=== PATIENT | male | born 1975 | race Caucasian/White ===

== ENCOUNTER 2024-05-02 09:37 | Emergency (ER) | payer BC, SELFPAY ==
[2024-05-02 09:50] VITALS: BP 130/82; PULSE 94; RESP 16; TEMP 36.4; O2SAT 100
[2024-05-02 10:00] LABS: EDUAAPPEAR Clear; EDUABILI Negative (Negative); EDUABLOOD Negative (Negative); EDUACOLOR1 Yellow; EDUAGLUCOSE Negative (Negative); EDUAKETONE Negative (Negative); EDUALEUKO Negative (Negative); EDUANITRATE Negative (Negative); EDUAPROTEIN Negative (Negative); EDUAUROBILI 0.2
--- NOTE | 2024-05-02 10:08 | ED_ITS ---
HPI - Abdominal Pain General Chief Complaint: Urogenital-Male Stated Complaint: ABD PAIN/UTI SYMPTOMS Time Seen by Provider: 05/02/24 09:58 Source: patient and RN notes reviewed Mode of arrival: ambulatory Limitations: no limitations History of Present Illness HPI narrative: Patient presents today complaining of a 2 day history of suprapubic discomfort with intermittent urethral pain. Denies hematuria, back pain, fever, nausea vomiting, diarrhea. Currently rates pain 4/10 and has tried no [id number] interventions prior to arrival. No scrotum or testicular discomfort. No concerns of sexually transmitted infections. Related Data Home Medications ?Medication ?Instructions ?Recorded ?Confirmed ?Last Taken ?Type atorvastatin 10 mg tablet mg 05/02/24 Unknown History Review of Systems Review of Systems: CONSTITUTIONAL: Denies body aches, fever, chills, or sweats. EYES: Denies visual changes, redness, or discharge. ENT: Denies rhinorrhea, congestion, sore throat, or otalgia. CARDIOVASCULAR: Denies chest pain, palpitations, or edema. RESPIRATORY: Denies cough or dyspnea. GASTROINTESTINAL: Denies nausea, vomiting, or diarrhea.+ suprapubic pain GENITOURINARY: Denies hematuria.+ dysuria, urethral pain SKIN: Denies rash, itching, or wounds. MUSCULOSKELETAL: Denies back pain, joint pain, or myalgia. NEUROLOGIC: Denies headache, numbness, tingling, or weakness. PSYCH: Denies depression or anxiety. PMFSH Comments At time of signature, I have reviewed and agree with nursing past medical, surgical, social and family history unless otherwise noted. Please see nursing chart for further information. There is no relevant family history pertinent to the presenting complaint Exam Narrative: GENERAL: Well-appearing, well-nourished, and in no acute distress. HEAD: Normocephalic, atraumatic. EYES: EOMI. No redness or drainage. Conjunctivae normal. ENT: Mucous membranes pink and moist. NECK: Normal AROM. CHEST: No respiratory distress. Clear to auscultation. HEART: Regular rate and rhythm. No murmur appreciated. Normal peripheral pulses. ABDOMEN: Soft, nontender, nondistended, normal active bowel sounds. EXTREMITIES: Normal range of motion. No edema. SKIN: Warm, dry, no rash. Capillary refill normal. Normal skin turgor. NEURO: No focal deficits. Alert and oriented x3. Gait steady. PSYCH: Normal affect. No signs of depression or anxiety. Course Course Level of Care: Express Care Visit Vital Signs Vital signs: Vital Signs Temperature 97.6 F 05/02/24 09:50 Pulse Rate 94 05/02/24 09:50 Respiratory Rate 16 05/02/24 09:50 Blood Pressure 130/82 05/02/24 09:50 Pulse Oximetry 100 05/02/24 09:50 Temperature 97.6 F 05/02/24 09:50 Pulse Rate 94 05/02/24 09:50 Respiratory Rate 16 05/02/24 09:50 Blood Pressure 130/82 05/02/24 09:50 Pulse Oximetry 100 05/02/24 09:50 Reviewed Transfer Transfered to: [facility] Transportation: Other (Private vehicle) Transfer rationale: Abdominal pain Accepting physician: Nadiya. Report given to Arnold Rodriguez nurse practitioner MDM - Abdominal Pain MDM Narrative Medical decision making narrative: Patient's urinalysis is negative. His abdominal exam is also negative. Gave patient the choice of being discharged or transferred to the ER for further evaluation depending on how he feels. Patient requested to go to the ER. Report called. Differential Diagnosis Differential diagnosis: Likely abdominal pain, acute appendicitis, diverticulitis and other (Gonorrhea, chlamydia, Trichomonas, UTI) Lab Data Attestation: I reviewed the patient's lab results. Labs: Lab Results 05/02/24 Range/Units 09:56 POC Urine Color Yellow POC Urine Clarity Clear POC Urine pH 7.0 POC Ur Specif [place] 1.010 POC Urine Protein Negative (Negative) POC Ur Glucose (UA) Negative (Negative) POC Urine Ketones Negative (Negative) POC Urine Blood Negative (Negative) POC Urine Nitrite Negative (Negative) POC Urine Bilirubin Negative (Negative) POC Urine Urobilinogen 0.2 POC U Leukocyte Esteras Negative (Negative) Discharge Plan Discharge Clinical Impression: Acute suprapubic pain, Pain in urethra Patient Disposition: Acute Care Hospital Condition: Stable Patient Language: Sinhala Prescriptions: No Action atorvastatin 10 mg tablet Follow-up/Referrals: Pierce,MEERA Abbott [Primary Care Provider] - Time of Disposition: 10:20
== END 2024-05-02 10:16 | disposition short-term general hospital (02) ==
PROVIDERS: Emergency Provider Nurse Practitioner; PCP Physician Assistant
DX: R10.30 Lower abdominal pain, unspecified (principal); N36.9 Urethral disorder, unspecified
CPT/HCPCS: 81003; 99212; G0463

== ENCOUNTER 2024-05-02 10:32 | Emergency (ER) | payer BC, SELFPAY ==
--- NOTE | ~2024-05-02 | CT_ITS ---
EXAMINATION: CT abdomen pelvis wo con DATE: 05/02/2024 10:56 INDICATION: Pain with urination TECHNIQUE: Computed tomography (CT) of the abdomen and pelvis was performed without intravenous contr ast. The dose-length product was 418.54 mGy-cm. Automated exposure control and iterative reconstructi on technique were employed. COMPARISON: None. FINDINGS: There is mild uncomplicated sigmoid diverticulitis just above the bladder. Nonobstructive b owel pattern. Lung bases unremarkable. Heart size normal. No significant pleural or pericardial effus ion. There is an accessory splenule. The spleen, pancreas, adrenal glands and kidneys are unremarkable. Th ere are gallstones. There are duodenal diverticulum. No significant vascular abnormality. No free air or free fluid. There is mild dextrocurvature of the lumbar spine. IMPRESSION: 1. Acute uncomplicated diverticulitis. Reviewed, dictated and finalized at location A.
[2024-05-02 10:38] VITALS: BP 144/89; PULSE 88; RESP 18; O2SAT 100
--- NOTE | 2024-05-02 10:49 | ED.ABDPAIN ---
HPI - Abdominal Pain General Chief Complaint: Abdominal Pain Stated Complaint: ABD PAIN,PAINFUL URINATION Time Seen by Provider: 05/02/24 10:40 History of Present Illness HPI narrative: 49-year-old male with no pertinent past medical history presenting to the emergency department via referral from urgent care. He has been having some pain with urination for last several days and went to urgent care today. They an unremarkable urinalysis and unremarkable exam but symptom to the hospital for further evaluation. Patient denies any upper abdominal pain, deep pelvic pain, genitalia lesions or concerns for STD. No penile rashes or scrotal penile pain. No nausea, vomiting, flank pain, diarrhea. No pain with defecation. States that this has happened to him previously and was from a urinary tract infection. No recent injuries or illnesses. No antibiotic allergies to his knowledge. He was otherwise in good health without any concerns. History of kidney stones or bladder stones. No history of prostatitis. Related Data Home Medications ?Medication ?Instructions ?Recorded ?Confirmed ?Last Taken ?Type atorvastatin 10 mg tablet mg 05/02/24 Unknown History Allergies Allergy/AdvReac Type Severity Reaction Status Date / Time No Known Allergies Allergy Verified 05/02/24 10:33 Review of Systems Review of Systems: As reviewed above in HPI Exam Narrative: GENERAL: [Well-appearing, well-nourished, and in no acute distress.] HEAD: [Normocephalic, atraumatic.] EYES: [PERRLA and EOMI.] ENT: Nares clear, no rhinorrhea or epistaxis. Mucous membranes moist. NECK: Supple. CHEST: [Clear to auscultation. No respiratory distress.] HEART: [Regular rate and rhythm]. No murmur heard. [Normal peripheral pulses.] ABDOMEN: [Soft, nondistended], [nontender], [No rigidity or guarding] EXTREMITIES: Normal range of motion. [No edema.] SKIN: Warm, dry, no rash. NEURO: [No focal deficits]. Alert and oriented [x3.] PSYCH: [Normal mood and affect.] Course Vital Signs Vital signs: Vital Signs Pulse Rate 88 05/02/24 10:38 Respiratory Rate 18 05/02/24 10:38 Blood Pressure 144/89 H 05/02/24 10:38 Pulse Oximetry 100 05/02/24 10:38 Oxygen Delivery Room Air 05/02/24 10:38 Pulse Rate 88 05/02/24 10:38 Respiratory Rate 18 05/02/24 10:38 Blood Pressure 144/89 H 05/02/24 10:38 Pulse Oximetry 100 05/02/24 10:38 Oxygen Delivery Room Air 05/02/24 10:38 MDM - Abdominal Pain MDM Narrative Medical decision making narrative: 49-year-old male presenting with dysuria for 2 days. No nausea, vomiting, diarrhea, flank pain. No abdominal pain. Soft nontender nondistended abdomen. Urgent Care workup with urinalysis was unremarkable and reviewed. No blood or microscopic hematuria. No bacteria seen. No ketones. He is a unremarkable examination with normal vital signs. He is afebrile and otherwise very well-appearing. Suspicion is low for any acute process such as prostatitis, cystitis, kidney stone or bladder stone. Given that he was referred to the emergency department for evaluation a CT scan without contrast was obtained to further delineate if there is any ongoing process. No indications for laboratory assessments at this time. Patient is comfortable without any acute pain at this time. Patient CT scan came back and shows evidence of acute uncomplicated diverticulitis. The sigmoid diverticula just above the bladder is the focus of the diverticulitis which explains patient's urinary complaints with pain with urination but no signs of urinary tract infection. No abscess formation or any complications. Patient is otherwise very well-appearing with normal vital signs. Not ill or septic appearing. I discussed treatment options the patient including conservative therapy with anti-inflammatories for pain control and watchful waiting versus antibiotics. Patient would prefer antibiotics that he was started on a short course of ciprofloxacin Flagyl and encouraged to follow-up with his primary care provider. He was given strict return precautions which she verbalized understanding and was safely discharged home at this time. Medical Records Attestation: I reviewed the patient's medical records. Imaging Data Attestation: I personally reviewed and interpreted this imaging study as follows: Radiologist's impression: ITS Impressions Abdomen/Pelvis CT 05/02/24 10:58 IMPRESSION: 1. Acute uncomplicated diverticulitis. Discharge Plan Discharge Clinical Impression: Acute diverticulitis, Dysuria Patient Disposition: Home, Self-Care Condition: Stable Instructions: Antibiotic Form, Diverticulitis (DC) Additional Instructions: Your CT scan shows very mild uncomplicated sigmoid diverticulitis just above the bladder which is why your symptoms are manifesting as dysuria. Urine without any signs of infection. Otherwise stable vital signs and we will treat you with a short course of antibiotics including ciprofloxacin and Flagyl. Take these medications twice daily for the next 10 days. Return if you start developing abdominal pain, nauseousness, vomiting, inability to tolerate oral intake or any other concerns. Otherwise follow-up with regular doctor. Patient Language: Kiswahili Prescriptions: New ciprofloxacin HCl 500 mg tablet 500 mg PO Q12H 10 Days Qty: 20 0RF metronidazole 500 mg tablet 500 mg PO BID 10 Days Qty: 20 0RF No Action atorvastatin 10 mg tablet Follow-up/Referrals: Pierce,MEERA Abbott [Primary Care Provider] - Time of Disposition: 11:38
[2024-05-02 11:36] VITALS: BP 135/87; PULSE 84; RESP 17; O2SAT 99
[2024-05-02 11:42] VITALS: TEMP 36.9
--- OUTSIDE RECORDS SUMMARY | 2024-05-02 11:53 | XMS_ITS | Clinical Summary ---
Author Organization [facility] Address [address] [place] [id number] Care Team Providers Care [employer] T[employer] Worker Name Role Phone Milena Pelayo Primary Care Provider [phone] Encounters Date Type Department Care Team Description 04/27/2024 2:57 PM CDT - 04/27/2024 11:59 PM CDT Hospital Encounter [facility] [address] [place] [address] Boubacar Horton MD Discharge Disposition: Home or Self Care (Routine Discharge) 04/27/2024 Travel from Last 3 Months Social History Tobacco Use Types Packs/Day Years Used Date Smoking Tobacco: Never Assessed Sex and Gender Information Value Date Recorded Sex Assigned at Male 04/27/2024 2:55 PM CDT 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 Gender Identity Not on file Sexual Orientation Not on file Plan of Treatment Health Maintenance Due Date Last Done Comments Colorectal Cancer Screening Colonoscopy (10 Years) 1976 Annual Physical 02/19/1979 Hepatitis C 02/19/1994 DTaP, Tdap and Td Vaccines (1 - Tdap) 02/19/1995 Hepatitis B Vaccines (1 of 3 - 19+ 3-dose series) 02/19/1995 COVID-19 Vaccine ( - season) 2023 11/19/2021 Influenza Adult (#1) 2023 12/07/2022, 11/19/2021, 10/18/2019, Additional history exists Meningococcal B Vaccine Aged Out No l onger eligible based on patient's age to complete this topic Meningococcal Vaccine Aged Out No lissa erum eligible based on patient's age to complete this topic Pneumococcal Vaccine: Pediatrics (0 to 5 Years) and At-Risk Patients (6 to 64 Years) Aged Out No longer eligible based on patient's age to complete this topic RSV Immunizations Under 20 Months Aged Out No longer eligible based on patient's age to complete this topic Procedures Procedure Name Priority Date/Time Associated Diagnosis Comments CT HEART SCREEN CALCIUM SCORE PROMO Routine 04/27/2024 3:30 PM CDT Screening for heart disease from Last 3 Months Results * CT HEART SCREEN CALCIUM SCORE PROMO (04/27/2024 3:30 PM CDT) Anatomical Region Laterality Modality Chest Computed Tomogra phy 04/27/2024 5:38 PM CDT Impressions 04/27/2024 5:42 PM CDT IMPRESSION: 1. The total calcium score of 13.6 which is 57 percentile for gender and age matched population. This examination is not to be considered a substitute for a clinical examination by a physician. Coronary calcium scoring is intended to be a risk assessment test for coronary artery disease, and the results of this examination should be taken into careful consideration by the patient's own physician in the context of other factors such as relevant history, physical examination, and any other indicated investigations. All reference calcium scores contained in this report were generated from Electron Beam Tomography, or an equivalent technology. Please bear this proviso in mind when reviewing this report. 2. Ordered By: BOUBACAR HORTON Interpreted By: Alcides Zee MD, 04/27/2024 5:38 PM Narrative 04/27/2024 5:42 PM CDT [address] [address] EXAMINATION: CARDIAC CT - CORONARY CALCIUM CT EXAM DATE/TIME: 04/27/2024 3:12 PM REASON FOR EXAM: Screening for heart disease COMPARISON: None HISTORY: 49-year old male for coronary artery disease risk assessment. TECHNIQUE: Multidetector computerized tomography coronary angiogram was obtained using retrospective ECG gating. ECG tube modulation was used to reduce the radiation exposure. Calcium score was calculated using [employer] system software. No intravenous contrast material was administered. A dose lowering technique was used for this procedure, which may include, but is not limited to, dose reduction technique, automated exposure control, the use of iterative reconstruction, and ALARA (As Low As Reasonably Achievable) / Image Gently techniques. Procedure Complications/Allergic reactions: None. Coronary calcium CT quality: Good, limited by nothing FINDINGS: AGATSTON SCORE: The total calcium score is 13.6. This places the patient into the 57% in comparison to a group of patient's asymptomatic for coronary artery disease with the same age and gender. This means that 56% of men at age 48 have calcium scores lower than the patient. Refer to the printed report for the graph demonstrating the population risk stratification for asymptomatic men. Coronary Artery Score Left Main (LM) 0 Left Anterior Descending (LAD) 10.3 Left Circumflex (LCX) 0.865 Right Coronary Artery (RCA) 2.44 Total Agatston Score 13.6 ADDITIONAL FINDINGS: The cardiac chambers are normal. The cardiac valves are unremarkable without calcification. The visualized thoracic aorta is normal caliber. No suspicious lung nodule, mass, consolidation. Visible upper abdomen is unremarkable. No suspicious osteolytic or osteoblastic lesions. Procedure Note Alcides Zee MD - 04/27/[address] [address] EXAMINATION: CARDIAC CT - CORONARY CALCIUM CT EXAM DATE/TIME: 04/27/2024 3:12 PM REASON FOR EXAM: Screening for heart disease COMPARISON: None HISTORY: 49-year old male for coronary artery disease risk assessment. TECHNIQUE: Multidetector computerized tomography coronary angiogram wasobtained using retrospective ECG gating. ECG tube modulation was used toreduce the radiation exposure. Calcium score was calculated usingPoken software. No intravenous contrast material wasadministered. A dose lowering technique was used for this procedure, whichmay include, but is not limited to, dose reduction technique, automatedexposure control, the use of iterative reconstruction, and ALARA (As LowAs Reasonably Achievable) / Image Gently techniques. Procedure Complications/Allergic reactions: None. Coronary calcium CT quality: Good, limited by nothing FINDINGS: AGATSTON SCORE: The total calcium score is 13.6. This places the patientinto the 57% in comparison to a group of patient's asymptomatic forcoronary artery disease with the same age and gender. This means that 56%of men at age 48 have calcium scores lower than the patient. Refer to theprinted report for the graph demonstrating the population riskstratification for asymptomatic men. Coronary Artery Score Left Main (LM) 0 Left Anterior Descending (LAD) 10.3 Left Circumflex (LCX) 0.865 Right Coronary Artery (RCA) 2.44 Total Agatston Score 13.6 ADDITIONAL FINDINGS: The cardiac chambers are normal. The cardiac valvesare unremarkable without calcification. The visualized thoracic aorta isnormal caliber. No suspicious lung nodule, mass, consolidation. Visibleupper abdomen is unremarkable. No suspicious osteolytic or osteoblasticlesions. IMPRESSION: 1. The total calcium score of 13.6 which is 57 percentile for gender andage matched population. This examination is not to be considered a substitute for a clinicalexamination by a physician. Coronary calcium scoring is intended to be arisk assessment test for coronary artery disease, and the results of thisexamination should be taken into careful consideration by the patient'sown physician in the context of other factors such as relevant history,physical examination, and any other indicated investigations. Allreference calcium scores contained in this report were generated fromElectron Beam Tomography, or an equivalent technology. Please bear thisproviso in mind when reviewing this report. 2. 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
--- OUTSIDE RECORDS SUMMARY | 2024-05-02 11:53 | XMS_ITS | Data Portability ---
Author Organization [facility] JEREMIAHDomenicaSouth [place] H Address [address] [place] [address] Care Team Providers Care Money Room Teller Name Role Phone PATTY ESPINO Primary Care Provider Unavailab le Assessment Encounter Date Assessment Date Assessment LastModified by Organization Details LastModified Time 08/26/2023 08/26/2023 Cologuard screening is up-to-date at this time. Eye exam up-to-date Dental exam up-to-date Not available 08/28/2023 01:29:24 Plan of Treatment Reminders Order Date Submit Date Provider Last Modified By Organization Details Last Modified Time Details Appointments None recorded . Lab PSA, total, serum or plasma 024 08/26/19 DUC Rhoades, [address], [place], [address], 4 03:37:05 TSH + free T4, serum 024 08/26/19 24 DUC Rhoades, [address], [place], [address], 4 03:37:03 CMP, serum or plasma 024 08/26/19 24 DUC Rhoades, [address], [place], [address], 4 03:37:04 CBC w/ auto diff 024 08/26/19 24 DUCJAMSHID Rhoades, [address], [place], [address], 4 03:37:05 lipid panel, serum 024 08/26/19 [facility], [address], [place], [address], 4 03:37:03 HbA1c (hemoglo bin A1c), blood 024 08/26/19 [place] [facility], [address], [place], [address], 4 03:37:04 Referral None recorded . Procedures None recorded . Surgeries None recorded . Imaging None recorded . Medication Orders None recorded . Patient TargetsNo targets recorded. Patient Instructions Encounter Date Encounter Id Patient Instructions Last Modified By Organization Details Last Modified Time 08/26/2023 [id number] A healthy lifestyle: care instructions Not available 08/26/2023 16:38:52 Reason for Referral None Reported. Results Created Date Observation Date Name Description Value Unit Range Abnormal Flag Note LastModifiedBy Organization Detail LastModifiedTime 09/20/19 24 09/21/2023 TSH+F REE T4 TSH 2.240 uIU/m L 0.450- 4.500 Not Available [facility] ([facility]) [address] [place], [address], 09/21/2023 03:37:03 09/20/19 24 09/21/2023 TSH+F REE T4 T4,free(dire ct) 1.31 NG/dL 0.82-1 .77 Not Available [facility] ([facility]) [address] [place], [address], 09/21/2023 03:37:03 09/20/19 24 09/21/2023 LIPID PANEL WITH LDL/H DL RATIO cholesterol, total 147 mg/dL 100-19 9 Not Available [facility] ([facility]) [address] [place], [address], 09/21/2023 03:37:03 09/20/19 24 09/21/2023 LIPID PANEL WITH LDL/H DL RATIO triglyceride s 123 mg/dL 0-149 Not Available [facility] ([facility]) [address] [place], [address], 09/21/2023 03:37:03 09/20/19 24 09/21/2023 LIPID PANEL WITH LDL/H DL RATIO HDL cholesterol 40 mg/dL >39 Not Available [facility] ([facility]) [address] [place], [address], 09/21/2023 03:37:03 09/20/19 24 09/21/2023 LIPID PANEL WITH LDL/H DL RATIO VLDL cholesterol leeanna 22 mg/dL 5-40 Not Available [facility] ([facility]) [address] [place], [address], 09/21/2023 03:37:03 09/20/19 24 09/21/2023 LIPID PANEL WITH LDL/H DL RATIO LDL chol calc (nih) 85 mg/dL 0-99 Not Available [facility] ([facility]) [address] [place], [address], 09/21/2023 03:37:03 09/20/19 24 09/21/2023 LIPID PANEL WITH LDL/H DL RATIO LDL/HDL ratio 2.1 ratio 0.0-3. 6 LDL/H DL Ratio Men Women 1/2 Avg.R isk 1.0 1.5 Avg.R isk 3.6 3.2 2X Avg.R isk 6.2 5.0 3X Avg.R isk 8.0 6.1 Not Available [facility] ([facility]) [address] [place], [address], 09/21/2023 03:37:03 09/20/19 24 09/21/2023 COMP. METAB OLIC PANEL (14) glucose 93 mg/dL 70-99 Not Available [facility] ([facility]) [address] [place], [address], 09/21/2023 03:37:04 09/20/19 24 09/21/2023 COMP. METAB OLIC PANEL (14) BUN 12 mg/dL 6-24 Not Available [facility] ([facility]) [address] [facility] [place], [address], 09/21/2023 03:37:04 09/20/19 24 09/21/2023 COMP. METAB OLIC PANEL (14) creatinine 1.34 mg/dL 0.76-1 .27 above high normal Not Available [facility] ([facility]) [address] [facility], [place], [address], 09/21/2023 03:37:04 09/20/19 24 09/21/2023 COMP. METAB OLIC PANEL (14) eGFR 66 mL/mi n/1.7 3 >59 Not Available [facility] ([facility]) [address] [facility] [place], [address], 09/21/2023 03:37:04 09/20/19 24 09/21/2023 COMP. METAB OLIC PANEL (14) BUN/creatini ne ratio 9 9-20 Not Available [facility] ([facility]) [address] [facility], [place], [address], 09/21/2023 03:37:04 09/20/19 24 09/21/2023 COMP. METAB OLIC PANEL (14) sodium 141 mmol/ L 134-14 4 Not Available [facility] ([facility]) [address] [facility], [place], [address], 09/21/2023 03:37:04 09/20/19 24 09/21/2023 COMP. METAB OLIC PANEL (14) potassium 4.6 mmol/ L 3.5-5. 2 Not Available [facility] ([facility]) [address] [facility] [place], [address], 09/21/2023 03:37:04 09/20/19 24 09/21/2023 COMP. METAB OLIC PANEL (14) chloride 103 mmol/ L 96-106 Not Available [facility] ([facility]) [address] [facility] [place], [address], 09/21/2023 03:37:04 09/20/19 24 09/21/2023 COMP. METAB OLIC PANEL (14) carbon dioxide, total 24 mmol/ L 20-29 Not Available [facility] ([facility] [address] [facility] [place], [address], 09/21/2023 03:37:04 09/20/19 24 09/21/2023 COMP. METAB OLIC PANEL (14) calcium 10.0 mg/dL 8.7-10 .2 Not Available [facility] ([facility]) [address] [place], [address], 09/21/2023 03:37:04 09/20/19 24 09/21/2023 COMP. METAB OLIC PANEL (14) protein, total 7.3 g/dL 6.0-8. 5 Not Available [facility] ([facility]) [address] [facility] [place], [address], 09/21/2023 03:37:04 09/20/19 24 09/21/2023 COMP. METAB OLIC PANEL (14) albumin 4.7 g/dL 4.1-5. 1 Not Available [facility] ([facility]) [address] [facility] [place], [address], 09/21/2023 03:37:04 09/20/19 24 09/21/2023 COMP. METAB OLIC PANEL (14) globulin, total 2.6 g/dL 1.5-4. 5 Not Available [facility] ([facility]) [address] [facility] [place], [address], 09/21/2023 03:37:04 09/20/19 24 09/21/2023 COMP. METAB OLIC PANEL (14) bilirubin, total 1.7 mg/dL 0.0-1. 2 above high normal Not Available [facility] ([facility]) [address] [facility], [place], [address], 09/21/2023 03:37:04 09/20/19 24 09/21/2023 COMP. METAB OLIC PANEL (14) alkaline phosphatase 74 IU/L 44-121 Not Available [facility] ([facility]) [address] [facility], [place], [address], 09/21/2023 03:37:04 09/20/19 24 09/21/2023 COMP. METAB OLIC PANEL (14) AST (SGOT) 23 IU/L 0-40 Not Available [facility] ([facility]) [address] [facility], [place], [address], 09/21/2023 03:37:04 09/20/19 24 09/21/2023 COMP. METAB OLIC PANEL (14) ALT (SGPT) 24 IU/L 0-44 Not Available [facility] ([facility]) [address] [facility], [place], [address], 09/21/2023 03:37:04 09/20/19 24 09/21/2023 HEMOG LOBIN A1C hemoglobin A1C 5.5 % 4.8-5. 6 Predi abete s: 5.7 - 6.4 Diabe nolan: >6.4 Glyce jaquelin contr ol for adult s with diabe nolan: <7.0 Not Available [facility] ([facility]) [address] [place], [address], 09/21/2023 03:37:04 09/20/19 24 09/20/2023 CBC WITH DIFFE RENTI AL/PL ATELE T WBC 5.8 x10e3 /uL 3.4-10 .8 Not Available [facility] ([facility]) [address] [place], [address], 09/21/2023 03:37:05 09/20/19 24 09/20/2023 CBC WITH DIFFE RENTI AL/PL ATELE T RBC 5.22 x10e6 /uL 4.14-5 .80 Not Available [facility] ([facility]) [address] [facility], [place], [address], 09/21/2023 03:37:05 09/20/19 24 09/20/2023 CBC WITH DIFFE RENTI AL/PL ATELE T hemoglobin 16.8 g/dL 13.0-1 7.7 Not Available [facility] ([facility]) [address] [place], [address], 09/21/2023 03:37:05 09/20/1909/20/2023 CBC WITH DIFFE RENTI AL/PL ATELE T hematocrit 49.8 % 37.5-5 1.0 Not Available [facility] ([facility]) [address] [place], [address], 09/21/2023 03:37:05 09/20/19 24 09/20/2023 CBC WITH DIFFE RENTI AL/PL ATELE T MCV 95 fL 79-97 Not Available [facility] ([facility]) [address] [place], [address], 09/21/2023 03:37:05 09/20/1909/20/2023 CBC WITH DIFFE RENTI AL/PL ATELE T MCH 32.2 pg 26.6-3 3.0 Not Available [facility] ([facility]) [address] [place], [address], 09/21/2023 03:37:05 09/20/1909/20/2023 CBC WITH DIFFE RENTI AL/PL ATELE T MCHC 33.7 g/dL 31.5-3 5.7 Not Available [facility] ([facility]) [address] [place], [address], 09/21/2023 03:37:05 09/20/19 24 09/20/2023 CBC WITH DIFFE RENTI AL/PL ATELE T RDW 12.5 % 11.6-1 5.4 Not Available [facility] ([facility]) [address] [facility], [place], [address], 09/21/2023 03:37:05 09/20/19 24 09/20/2023 CBC WITH DIFFE RENTI AL/PL ATELE T platelets 220 x10e3 /uL 150-45 0 Not Available [facility] ([facility]) [address] [facility], [place], [address], 09/21/2023 03:37:05 09/20/19 24 09/20/2023 CBC WITH DIFFE RENTI AL/PL ATELE T neutrophils 53 % notest ab. Not Available [facility] ([facility]) [address] [facility], [place], [address], 09/21/2023 03:37:05 09/20/19 24 09/20/2023 CBC WITH DIFFE RENTI AL/PL ATELE T lymphs 33 % notest ab. Not Available [facility] ([facility]) [address] [facility], [place], [address], 09/21/2023 03:37:05 09/20/19 24 09/20/2023 CBC WITH DIFFE RENTI AL/PL ATELE T monocytes 11 % notest ab. Not Available [facility] ([facility]) [address] [facility], [place], [address], 09/21/2023 03:37:05 09/20/19 24 09/20/2023 CBC WITH DIFFE RENTI AL/PL ATELE T eos 2 % notest ab. Not Available [facility] ([facility]) [address] [facility], [place], [address], 09/21/2023 03:37:05 09/20/19 24 09/20/2023 CBC WITH DIFFE RENTI AL/PL ATELE T basos 1 % notest ab. Not Available [facility] ([facility]) [address] [facility], [place], [address], 09/21/2023 03:37:05 09/20/19 24 09/20/2023 CBC WITH DIFFE RENTI AL/PL ATELE T neutrophils (absolute) 3.1 x10e3 /uL 1.4-7. 0 Not Available [facility] ([facility]) [address] [facility], [place], [address], 09/21/2023 03:37:05 09/20/19 24 09/20/2023 CBC WITH DIFFE RENTI AL/PL ATELE T lymphs (absolute) 1.9 x10e3 /uL 0.7-3. 1 Not Available [facility] ([facility]) [address] [facility], [place], [address], 09/21/2023 03:37:05 09/20/19 24 09/20/2023 CBC WITH DIFFE RENTI AL/PL ATELE T monocytes(ab solute) 0.7 x10e3 /uL 0.1-0. 9 Not Available [facility] ([facility]) [address] [facility], [place], [address], 09/21/2023 03:37:05 09/20/19 24 09/20/2023 CBC WITH DIFFE RENTI AL/PL ATELE T eos (absolute) 0.1 x10e3 /uL 0.0-0. 4 Not Available [facility] ([facility]) [address] [facility], [place], [address], 09/21/2023 03:37:05 09/20/19 24 09/20/2023 CBC WITH DIFFE RENTI AL/PL ATELE T baso (absolute) 0.1 x10e3 /uL 0.0-0. 2 Not Available [facility] ([facility]) [address] [facility], [place], [address], 09/21/2023 03:37:05 09/20/19 24 09/20/2023 CBC WITH DIFFE RENTI AL/PL ATELE T immature granulocytes 0 % notest ab. Not Available [facility] ([facility]) [address] [facility], [place], [address], 09/21/2023 03:37:05 09/20/19 24 09/20/2023 CBC WITH DIFFE RENTI AL/PL ATELE T immature grans (abs) 0.0 x10e3 /uL 0.0-0. 1 Not Available [facility] ([facility]) [address] [facility], [place], [address], 09/21/2023 03:37:05 09/20/19 24 09/21/2023 PROST ATE-S PECIF IC AG prostate specific Ag 3.5 NG/mL 0.0-4. 0 Aris ECLIA metho dolog y. Accor ding to the Ameri can Urolo gical Assoc iatio n, Serum PSA shoul d decre ase and remai n at undet ectab le level s after radic al prost atect giovany. The AUA defin es bioch emica l recur rence as an initi al PSA value 0.2 ng/mL or great er follo wed by a subse quent confi rmato ry PSA value 0.2 ng/mL or great er. Value s obtai joanna with diffe rent assay metho ds or kits canno t be used inter perez eably . Resul ts canno t be inter prete d as absol [place] evide nce of the prese nce or absen ce of tabitha cook se. Not Available [facility] ([facility]) [address] [facility], [place], [address], 09/21/2023 03:37:05 05/03/1905/02/2024 imagi ng/di agnos tic resul t No observ ation record ed. [facility] [address], [place], [address], 05/02/2024 12:31:47 Result Notes None recorded. Problems Name Problem SNOMED Code Status Onset Date Resolution Date Notes Provider Name and Address Organization Details Recorded Time Long-term drug therapy Active 2023 HILDA Sosa Attn: Elsie santos,[address] [facility], [place], [address], [facility] - [facility] 4 01:28:27 Body mass index 25-29 - overweight 813717168 Active 2023 HILDA Sosa Attn: Elsie santos,[address] [facility], [place], [address], [place] - [facility] 4 01:28:33 Hyperlipidemia 62799320 Active 2023 HILDA Sosa Attn: Elsie santos,[address] [facility], [place], [address], [facility] - [facility] 4 01:28:34 Overweight 108189616 Active 2023 HILDA Sosa Attn: Elsie santos,[address] [facility], [place], [address], [facility] - [facility] 4 01:28:36 Problem Notes None recorded. Procedures Surgical History None recorded. Imaging Results Imaging Date Name Status LastModified by Organiz ation Details LastModified Time 05/02/2024 imaging/diagn ostic result active [place] [address] [facility] [address], [place], [address], 05/02/2024 12:31:47 Procedure Notes None recorded. Medical Equipment None Reported. Allergies No known drug allergies Medications Name Sig Start Date Stop Date Status Note LastModified by Organization Details LastModified Time atorvastatin 10 mg tablet One tab p.o. daily 2023 active Not Available Not Available Not Avai lable ketorolac 10 mg tablet TAKE 1 TABLET BY MOUTH EVERY 6 HOURS NEEDED FOR PAIN 08/25 completed Not Available Not Available Not Available Vitals Date Recorded Body height Body mass index (BMI) Body weight Respiratory rate Oxygen saturation Oxygen saturation in Arterial blood by Pulse oximetry Heart rate Systolic blood pressure Diastolic blood pressure Provider Name and Address Organization Details Last Updated DateTime 4 175.26 cm 26.4 kg/m2 74804.1 8 g 20 /min 99 % 99 % 66 /min 128 mm[Hg] 88 mm[Hg] Brooke Busch MA [facility] 16:15:29 Date Recorded Systolic blood pressure Diastolic blood pressure Provider Name and Address Organization Details Last Updated DateTime 08/26/2023 120 mm[Hg] 80 mm[Hg] HILDA Sosa Attn: Accounting,[address] [facility], [place], [address], [facility] 08/26/2023 16:35:23 Social History Question Answer Notes LastModified by Organizat ion Details LastModified Time Tobacco Smoking Status Never Smoker Brooke uBsch MA null, [facility] 08/26/2023 16:12:25 Do You Have An Advance Directive? Yes Information not available 08/26/2023 What Is Your Level Of Alcohol Consumption? Occasional Information not available 08/26/2023 Are You Blind Or Do You Have Difficulty Seeing? No Contacts Information not available 08/26/2023 What Is Your Level Of Caffeine Consumption? Occasional Coffee Information not available 08/26/2023 In The 14 Days Before Symptom Onset, Have You Had Close Contact With A Laboratory-confir med COVID-19 While That Case Was Ill? No Information not available 08/26/2023 In The 14 Days Before Symptom Onset, Have You Had Close Contact With A Person Who Is Under Investigation For COVID-19 While That Person Was Ill? No Information not available 08/26/2023 Have You Been To An Area Known To Be High Risk For COVID-19? No Information not available 08/26/2023 Are You Currently Employed? Yes Information not available 08/26/2023 Are You Deaf Or Do You Have Serious Difficulty Hearing? No Information not available 08/26/2023 What Type Of Diet Are You Following? REGULAR Information not available 08/26/2023 What Is Your Occupation? [employer] Information not available 08/26/2023 Are There Any Guns Present In Your Home? No Information not available 08/26/2023 What Was The Date Of Your Most Recent Tobacco Screening? 08/26/2023 Information not available 08/26/2023 Do You Use Your Seat Belt Or Car Seat Routinely? Yes Information not available 08/26/2023 Do You Have Smoke And Carbon Monoxide Detectors In Your Home? Yes Information not available 08/26/2023 Do You Use Any Illicit Or Recreational Drugs? No Information not available 08/26/2023 Do You Use Sunscreen Routinely? Yes Information not available 08/26/2023 Has Tobacco Cessation Counseling Been Provided? Yes Information not available 08/26/2023 On What Date Was Tobacco Cessation Counseling Provided? 08/26/2023 Information not available 08/26/2023 Do You Or Have You Ever Used Any Other Forms Of Tobacco Or Nicotine? No Information not available 08/26/2023 Sex: Male Functional Status Question Answer Note LastModified by Organization D etails LastModified Time Are you able to care for yourself? Yes Information not available 08/26/2023 What is your exercise level? Moderate Information not available 08/26/2023 Mental Status None recorded. Family History Relationship Description Onset Age of this Age Resolved Age Notes LastModified by Organization Details LastModified Time Father Hypercholest nisaia tcarterma Not available 2023 16:18:05 Medical History Condition Response High Cholesterol Y Immunizations Vaccine Type Date Status Note Provider Nam e and Address Organization Details Recorded Time Influenza, MDCK, quadrivalent, PF 11/27/2020 completed RON [place], [place] [facility] 12/05/2023 10:12:17 Influenza, recombinant, quadrivalent, PF 11/10/2018 [place] RON [place] [facility] 12/05/2023 10:12:17 Influenza, recombinant, quadrivalent, PF 12/07/2022 [place]ON [place] [facility] 12/05/2023 10:12:17 COVID-19, mRNA, LNP-S, PF, 30 mcg/0.3 mL dose 04/24/2020 [place]ON [place] [facility] 12/05/2023 10:12:17 COVID-19, mRNA, LNP-S, PF, 30 mcg/0.3 mL dose 05/18/2020 [place] RON [place] [facility] 12/05/2023 10:12:17 COVID-19, mRNA, LNP-S, PF, 30 mcg/0.3 mL dose 12/26/2020 completed RON Clark [place] [facility] 12/05/2023 10:12:17 COVID-19, mRNA, LNP-S, bivalent, PF, 50 mcg/0.5 mL or 25mcg/0.25 mL dose 11/19/2021 completed RON Clark [place] - [facility] 12/05/2023 10:12:17 Influenza, split virus, quadrivalent, PF 10/18/2019 [place]ON [place] [facility] 12/05/2023 10:12:17 Influenza, split virus, quadrivalent, PF 11/19/2021 [place] RON [place] [facility] 12/05/2023 10:12:17 Influenza, recombinant, trivalent, PF 12/02/2023 [place] RON [place] [facility] 12/05/2023 10:13:55 Past Encounters Encounter ID Performer Location Encounter Start Date Encounter Closed Date Diagnosis/Indication Diagnosis SNOMED-CT Code Diagnosis ICD10 Code Diagnosis Note [id number] HILDA Sosa [facility] [place] [address] [place] [address] 08/26/2023 15:44:08 08/26/2023 16:39:45 Body mass index 25-29 - overweight 811060214 Z68.26 BMI is in the 26 range just slightly above goal. He is looking to increase some exercise to help. Overweight 435145071 E66 .3 Adult [facility] th examination 199968615 Z00.00 Annual wellness exam is completed. Diabetes m ellitus screening 382733522 Z13.1 Annual A1c screening is ordered Thyroid di sorder screening 131449823 Z13.29 Routine thyroid function panel is ordered Screening for malignant neoplasm of prostate 424695861 Z12.5 Annual PSA lab is due Hyperlipidemia 65616511 E78.5 Continue atorvastat in 10 mg daily and check updated fasting lipid panel. Long-term drug therapy 915751683 Z79.899 Routine CBC and CMP ordered Health Concerns Section Related Observation LastModified by Organization Detai ls LastModified Time None Recorded Concern Status LastModified by Organization Details LastModified Time None Recorded Advance Directives Directive Y: Payers Encounter Date Sequence Insurance Name Policy Number Policy Garcia Covered Member ID Garcia Member ID Guarantor Name 08/26/2023 1 [employer] [id number] Kurt Sarabia [id number] Kurt Sarabia Notes Date Note Type Note Provider Name and Address Organization Details Recorded Time 4 text/html HyperlipidemiaReported bypatient.Notes:Patient has a history of hyperlipidemia and takes atorvastatin 10 mg daily he is adherent to dosing and adherent to annual follow-up with labs. He is due for lab work. He feels that he has not been biking quite as much with exercise lately but still doing routine activity and exercise. He has no new complaints or questions. HILDA Sosa Attn: Accounting,[address] [facility], [place], [address], [place] [facility] 08/28/2023 01:30:37
--- OUTSIDE RECORDS SUMMARY | 2024-05-02 12:29 | XMS_ITS | Clinical Summary ---
Author Organization [facility] Address [address] [place] [id number] Care Team Providers Care Cooling Room Attendant Name Role Phone Milena Pelayo Primary Care Provider [phone] Encounters Date Type Department Care Team Description 04/27/2024 2:57 PM CDT - 04/27/2024 11:59 PM CDT Hospital Encounter [facility] [address] [place] [address] Boubacar Horton MD Discharge Disposition: Home or Self Care (Routine Discharge) 04/27/2024 Travel from Last 3 Months Social History Tobacco Use Types Packs/Day Years Used Date Smoking Tobacco: Never Assessed Sex and Gender Information Value Date Recorded Sex Assigned at Male 04/27/2024 2:55 PM CDT Legal Sex Male 2:27 PM 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 TECHNIQUE: Multidetector computerized tomography coronary angiogram was obtained using retrospective ECG gating. ECG tube modulation was used to reduce the radiation exposure. Calcium score was calculated using [employer] system software. No intravenous contrast material was [...] Procedure Note Alcides Zee MD - 04/27/[address] [address] EXAMINATION: CARDIAC CT - CORONARY CALCIUM CT EXAM DATE/TIME: 04/27/2024 3:12 PM REASON FOR EXAM: Screening for heart disease COMPARISON: None HISTORY: 49-year old male for coronary artery disease risk assessment. TECHNIQUE: Multidetector computerized tomography coronary angiogram wasobtained using retrospective ECG gating. ECG tube modulation was used toreduce the radiation exposure. Calcium score was calculated using[employer] software. No intravenous contrast material wasadministered. A [...] ult from Last 3 Months Care Teams Cooling Room Attendant Relationship Specialty Start Date End Date Milena Pelayo PA [address] [place] [address] PCP - General PHYSICIAN PEANUT BLANCHER 04/06/24
== END 2024-05-02 11:43 | disposition home or self-care (01) ==
PROVIDERS: Emergency Provider Student in an Organized Health Care Education/Training Program; PCP Physician Assistant
DX: K57.32 Diverticulitis of large intestine without perforation or abscess without bleeding (principal)
CPT/HCPCS: 74176; 81003; 99284